=== PATIENT | female | born 1950 | race Caucasian/White ===

== ENCOUNTER 2018-07-22 11:29 | Outpatient (CLI) | payer MEDICARE, BC, SELFPAY ==
[2018-07-22 13:36] LABS: TSH (W/Ref FT4) 0.67 uIU/mL (0.358-3.74)
== END 2018-07-22 11:49 ==
PROVIDERS: PCP Family Medicine; Visit Provider Family Medicine
DX: F03.90 Unspecified dementia, unspecified severity, without behavioral disturbance, psychotic disturbance, mood disturbance, and anxiety (principal); E03.9 Hypothyroidism, unspecified
CPT/HCPCS: 36415; 84443